=== PATIENT | female | born 1985 | race Caucasian/White ===

== ENCOUNTER 2023-08-21 08:27 | Outpatient (CLI) | payer OTHER, SELFPAY | END 2023-08-21 09:45 | disposition home or self-care (01) | LOC: WPOUT 08:34 → WP 08:34 | PROVIDERS: Visit Provider Obstetrics & Gynecology | DX: O92.70 Unspecified disorders of lactation (principal) | CPT/HCPCS: 96158; 96159 ==

== ENCOUNTER 2023-08-27 13:45 | Outpatient (CLI) | payer OTHER, SELFPAY | END 2023-08-27 14:30 | disposition home or self-care (01) | LOC: WPOUT 14:58 → WP 14:58 | PROVIDERS: Referring Provider Obstetrics & Gynecology; Visit Provider Obstetrics & Gynecology | DX: Z39.1 Encounter for care and examination of lactating mother (principal) | CPT/HCPCS: 96158 ==